=== PATIENT | male | born 1970 | race Two or more races ===

== ENCOUNTER 2018-07-10 11:53 | Emergency (ER) | payer BC, MEDICAID ==
[~2018-07-10] VITALS: Ht 177.8 cm; Wt 90.0 kg
[2018-07-10] MEDS ORDERED: LISI10TA4 PO (12:22)
[2018-07-10] MEDS ORDERED: proCHLORperazine 10mg tablet PO ONE (12:25)
[2018-07-10 13:03] VITALS: BP 145/96
== END 2018-07-10 13:05 | disposition home or self-care (01) ==
LOC: ER 11:55
DX: G43.909 Migraine, unspecified, not intractable, without status migrainosus (principal); I10 Essential (primary) hypertension
CPT/HCPCS: 99283; Q0164